=== PATIENT | female | born 1995 | race African-American/Black ===

== ENCOUNTER 2023-10-30 13:33 | Outpatient (CLI) | payer SELFPAY ==
[2023-11-04 11:48] LABS: NIL 0.03 IU/mL; Quantiferon TB Plus, 1T NEGATIVE (NEGATIVE)
== END 2023-10-30 13:34 | disposition home or self-care (01) ==
LOC: ANHGOSHLAB 13:34
PROVIDERS: PCP Emergency Medicine; Visit Provider Emergency Medicine
DX: Z20.1 Contact with and (suspected) exposure to tuberculosis (principal)
CPT/HCPCS: 36415; 86480

== ENCOUNTER 2024-02-24 12:08 | Emergency (ER) | payer OTHER, SELFPAY ==
[2024-02-24 12:13] VITALS: BP 145/92; PULSE 100; RESP 18; TEMP 36.2; O2SAT 99
--- NOTE | 2024-02-24 12:21 | ED.WOUNDLAC ---
HPI - Wound/Laceration General Chief Complaint: Wound/Laceration Stated Complaint: lac on left hand Time Seen by Provider: 02/24/24 12:21 Source: patient Mode of arrival: ambulatory Limitations: no limitations History of Present Illness HPI narrative: This is a 28-year-old female who presents to the ED for chief complaint of left hand laceration that occurred prior to arrival. Patient was cutting an avocado when the knife slipped. Reports that it bled a lot of the time but had resolved by the time she got to the ED. states tetanus is not up-to-date Related Data Allergies Allergy/AdvReac Type Severity Reaction Status Date / Time No Known Allergies Allergy Verified 10/30/23 13:00 Review of Systems Review of Systems: All systems as dictated in HPI [facility] Past Medical History Medical History Allergies Anxiety Family History Family History Father Hypertension Depression Grandparent Depression Hypertension Social History Social History Smoking status: Never smoker Second hand tobacco smoke exposure: No Alcohol intake: current Alcohol use details: occassionaly, rare Substance use: never Substance use type: does not use Do You Feel Safe in your Home?: Yes Lack of Transportation: No Lack of Food: Never True Current Housing: I Have Housing Concerned About Future Housing: No Difficulty Paying Gas/Electric Bills: No Difficulty Paying for Meds: No Currently Unemployed: No Education: Bachelor's Degree Difficulty w/ Childcare or Family Care: No Exam Narrative: GENERAL: Well-appearing, well-nourished, and in no acute distress. MSK: Normal range of motion. No edema. SKIN: 2 cm superficial laceration to the hypothenar area. Bleeding controlled. Neurovascularly intact distally. Full range of motion NEURO: Alert and oriented x4. No focal deficits. PSYCH: Normal mood and affect. Course Vital Signs Vital signs: Vital Signs Temperature 97.2 F L 02/24/24 12:13 Pulse Rate 100 02/24/24 12:13 Respiratory Rate 18 02/24/24 12:13 Blood Pressure 145/92 H 02/24/24 12:13 Pulse Oximetry 99 02/24/24 12:13 Temperature 97.2 F L 02/24/24 12:13 Pulse Rate 100 02/24/24 12:13 Respiratory Rate 18 02/24/24 12:13 Blood Pressure 145/92 H 02/24/24 12:13 Pulse Oximetry 99 02/24/24 12:13 Procedures Laceration Laceration 1: Date: 02/24/24 Time: 13:20 Site: upper extremity and hand Side (If applicable): left Size (cm): 2 Description: linear Depth: simple, single layer Local Anesthetic: none Pre-repair: wound explored and irrigated extensively ====== Skin Level ====== Skin layer closed with: dermabond and steri strips Number of sutures: 2 ====== Subcutaneous Layer ====== ====== Muscle Layer ====== ====== Tendon Layer ====== MDM - Wound/Laceration MDM Narrative Medical decision making narrative: This is a 28-year-old female who presents to the ED for chief complaint of laceration to the left hand. Vitals are normal. Exam shows superficial 2 cm laceration to the left hand just in of the thumb on the volar side. Tetanus was updated today. The wound was well cleansed and irrigated here in the ED. Closed primarily with Dermabond sutures laceration instructions given Patient will be discharged in stable condition. Supportive measures discussed and return precautions given. Patient is understanding and agreeable with plan for discharge with PCP follow-up. Discharge Plan Discharge Clinical Impression: Laceration Patient Disposition: Home, Self-Care Condition: Stable Instructions: Antibiotic Form, Laceration (ED) Additional Instructions: Keep wound clean and dry. Do not soak, take baths, or swim until wound is completely healed. If any signs of infection such as redness, swelling, increasing pain, drainage of purulent discharge, streaks up your extremity develop, seek medical attention immediately. Prescriptions: No Action Nortrel (28) 0.5/0.75/1 mg- 35 mcg tablet 1 tablet PO DAILY Qty: 168 3RF venlafaxine 37.5 mg capsule,extended release 24hr 37.5 mg PO DAILY Qty: 90 1RF phentermine 37.5 mg capsule 37.5 mg PO DAILY Qty: 60 0RF Rx Instructions: must administer 30 minutes before or 1-2 hours after breakfast topiramate 50 mg tablet 50 mg PO DAILY Qty: 90 0RF Rx Instructions: NEEDS APPOINTMENT FOR FURTHER REFILLS Follow-up/Referrals: Ugo Baca MD [Primary Care Provider] - Time of Disposition: 13:21
[2024-02-24] MEDS: TETANUS,DIPHTHERIA,AC PERTUSSIS ADULT (0.5 ML) BOOSTRIX IM (12:29)
== END 2024-02-24 13:30 | disposition home or self-care (01) ==
PROVIDERS: Emergency Provider Physician Assistant; PCP Emergency Medicine
DX: S61.412A Laceration without foreign body of left hand, initial encounter (principal); Z23 Encounter for immunization; W26.0XXA Contact with knife, initial encounter; Y93.G1 Activity, food preparation and clean up
CPT/HCPCS: 12001; 90471; 90715; 99282

== ENCOUNTER 2024-06-04 13:54 | Emergency (ER) | payer SELFPAY ==
[2024-06-04 13:57] VITALS: BP 135/98; PULSE 78; RESP 20; TEMP 36.8; O2SAT 100
--- NOTE | 2024-06-04 14:29 | ED_ITS ---
HPI - General Adult General Chief complaint: Unspecified Stated complaint: Meds Re-fill Source: patient, RN notes reviewed and old records reviewed Mode of arrival: ambulatory Limitations: no limitations History of Present Illness HPI narrative: Patient with history of depression and anxiety presents tearfully. She reports that she had a PCP appointment today, made the appointment especially to have her venlafaxine refilled. When she showed up for her appointment, she was told that she would have to be rescheduled. She only has 1 capsule left. Denies any suicidal homicidal ideation, states that she is anxious because she was not sure how she was going to get her medication filled given that her PCP would not see her today and she is about to run out. She states that she does not want to abruptly discontinue her medication Related Data Allergies Allergy/AdvReac Type Severity Reaction Status Date / Time No Known Allergies Allergy Verified 06/04/24 14:04 Review of Systems Review of Systems: All systems reviewed & are unremarkable except as noted in HPI and below Constitutional: Constitutional: Reports no additional constitutional complaints ENT: Reports system reviewed and no additional complaints, except as documented Cardiovascular: Cardiovascular: Reports no additional cardiovascular complaints Respiratory: Respiratory: Reports no additional respiratory complaints Gastrointestinal: Gastrointestinal: Reports no additional gastrointestinal complaints PMF Past Medical History Medical History Allergies Anxiety Family History Family History Father Hypertension Depression Grandparent Depression Hypertension Social History Social History Smoking status: Never smoker Second hand tobacco smoke exposure: No Alcohol intake: current Alcohol use details: occassionaly, rare Substance use: never Substance use type: does not use Do You Feel Safe in your Home?: Yes Lack of Transportation: No Lack of Food: Never True Current Housing: I Have Housing Concerned About Future Housing: No Difficulty Paying Gas/Electric Bills: No Difficulty Paying for Meds: No Currently Unemployed: No Education: Bachelor's Degree Difficulty w/ Childcare or Family Care: No Comments At the time of my signature, I reviewed and agree with the nursing past medical, surgical, social, and family history. There is no relevant family history pertinent to the patient complaint. Exam Const: General: cooperative, no acute distress, alert and awake Orientation/consciousness: oriented to person, oriented to place and oriented to time HENMT: Head: normal to inspection Resp: Effort & Inspection: normal respiratory effort and able to speak in complete sentences Auscultation: clear to auscultation bilaterally, no crackles, no rales, no rhonchi and no wheezes Cardio: Palpation: normal PMI Rate: regular rate Rhythm: regular rhythm Heart sounds: S1 normal heart sound present and S2 normal heart sound present Neuro: General: oriented to person, oriented to place and oriented to time Cranial nerves: Yes CN's II-XII intact bilaterally Psych: Appearance: grossly normal Thought process: Normal thought process present Insight: Good insight present (Psych) Judgement: Good judgement present (Psych) Course Course Level of Care: Express Care Visit Vital Signs Vital signs: Vital Signs Temperature 98.2 F 06/04/24 13:57 Pulse Rate 78 06/04/24 13:57 Respiratory Rate 20 06/04/24 13:57 Blood Pressure 135/98 H 06/04/24 13:57 Pulse Oximetry 100 06/04/24 13:57 Oxygen Delivery Room Air 06/04/24 13:57 Temperature 98.2 F 06/04/24 13:57 Pulse Rate 78 06/04/24 13:57 Respiratory Rate 20 06/04/24 13:57 Blood Pressure 135/98 H 06/04/24 13:57 Pulse Oximetry 100 06/04/24 13:57 Oxygen Delivery Room Air 06/04/24 13:57 Reviewed Medical Decision Making MDM Narrative Medical decision making narrative: Patient needing a medication refill, no physical complaints today. Medication refill provided. Discharge instructions reviewed with patient, as well as provided in writing per nursing staff. The instructions also include specific and strict return/GO TO THE ER as well as f/u information. All questions have been answered, and the patient deny any further questions with discharge and discharge plan. Some parts of this dictation were generated by voice recognition software and may contain typographical and/or grammatical inaccuracies. Vital Signs Vital Signs: Vital Signs Temperature 98.2 F 06/04/24 13:57 Pulse Rate 78 06/04/24 13:57 Respiratory Rate 20 06/04/24 13:57 Blood Pressure 135/98 H 06/04/24 13:57 Pulse Oximetry 100 06/04/24 13:57 Oxygen Delivery Room Air 06/04/24 13:57 Temperature 98.2 F 06/04/24 13:57 Pulse Rate 78 06/04/24 13:57 Respiratory Rate 20 06/04/24 13:57 Blood Pressure 135/98 H 06/04/24 13:57 Pulse Oximetry 100 06/04/24 13:57 Oxygen Delivery Room Air 06/04/24 13:57 reviewed Lab Data Lab results reviewed: Yes I reviewed the patient's lab results. Lab results narrative: reviewed Discharge Plan Discharge Clinical Impression: Anxiety Patient Disposition: Home, Self-Care Condition: Stable Instructions: Antibiotic Form, Anxiety (ED) Patient Language: Turkish Prescriptions: New venlafaxine 37.5 mg tablet extended release 24hr 37.5 mg PO DAILY Qty: 30 0RF No Action Nortrel (28) 0.5/0.75/1 mg- 35 mcg tablet 1 tablet PO DAILY Qty: 168 3RF venlafaxine 37.5 mg capsule,extended release 24hr 37.5 mg PO DAILY Qty: 90 1RF topiramate 50 mg tablet 50 mg PO DAILY Qty: 90 0RF Rx Instructions: LAST REFILL UNTIL APPOINTMENT HAS BEEN MADE phentermine 37.5 mg capsule 37.5 mg PO DAILY Qty: 60 0RF Rx Instructions: must administer 30 minutes before or 1-2 hours after breakfast Follow-up/Referrals: PHYSICIAN,MANAGER OF FINANCIAL REPORTING [Primary Care Provider] - Time of Disposition: 14:31
== END 2024-06-04 14:35 | disposition home or self-care (01) ==
PROVIDERS: Emergency Provider Nurse Practitioner Family
DX: F41.9 Anxiety disorder, unspecified (principal); Z76.0 Encounter for issue of repeat prescription
CPT/HCPCS: 99211; 99213; G0463